=== PATIENT | female | born 1945 | race Caucasian/White ===

== ENCOUNTER → 2016-08-02 | Outpatient (CLI) | payer MEDICARE, MEDICAID ==
--- NOTE | 2016-08-02 13:42 | RADRPT ---
PROCEDURE: XR bilateral knees. CLINICAL INDICATION: Knee pain TECHNIQUE: AP, oblique and lateral views of each knee are available for review. COMPARISON: None available FINDINGS: There is mild to moderate osteoarthrosis involving the right and left patellofemoral compartments. T his is associated with osteophytosis. The osseous structures are otherwise normal in mineralization, architecture and alignment. No fract ures are identified. No osseous lesions are identified. The soft tissues are unremarkable. IMPRESSION: Mild to moderate osteoarthrosis involving the right and left patellofemoral compartments. RPTAT: [facility] .Man Gamez MD, MD Date Time Electronically viewed and signed by .Man Gamez MD, on 08/02/2016 13:42 .B/
== END | disposition home or self-care (01) ==
LOC: RAD 12:13
PROVIDERS: ATTEND Physical Medicine & Rehabilitation Pain Medicine
DX: M25.561 Pain in right knee (principal); M25.562 Pain in left knee; M17.0 Bilateral primary osteoarthritis of knee